=== PATIENT | female | born 1975 | race Caucasian/White ===

== ENCOUNTER → 2020-02-27 | Outpatient (CLI) | payer MEDICAID ==
[~2020-02-27] MED LIST: COVID-19 VACCINE (PFIZER)/PF 30 MCG/0.3 ML VIAL IM ONE; EPINEPHRINE INJ/PF 1 MG/1 ML AMPULE IM PRN
== END ==
LOC: EMPHEALTH 07:25
PROVIDERS: ATTEND Internal Medicine
DX: Z23 Encounter for immunization (principal)
CPT/HCPCS: 91300

== ENCOUNTER → 2020-03-19 | Outpatient (CLI) | payer MEDICAID ==
[~2020-03-19] MED LIST changes: -COVID-19 VACCINE (PFIZER)/PF 30 MCG/0.3 ML VIAL IM ONE
[2020-03-19] MEDS: COVID-19 VACCINE (PFIZER)/PF 30 MCG/0.3 ML VIAL IM ONE ×2 (07:27→07:42)
== END ==
LOC: EMPHEALTH 07:18
PROVIDERS: ATTEND Internal Medicine
DX: Z23 Encounter for immunization (principal)
CPT/HCPCS: 91300